=== PATIENT | female | born 1985 | race Caucasian/White ===

== ENCOUNTER 2018-10-05 12:21 | Emergency (ER) | payer BC, MEDICAID ==
[2018-10-05] MEDS ORDERED: HYDROCODONE/ACETAMINOPHEN 5-325 MG TABLET PO ONE (12:44)
[2018-10-05] MEDS ORDERED: PREDNISONE 20 MG TABLET PO ONE (12:44)
[2018-10-05] MEDS ORDERED: ONDANSETRON 4 MG TAB.RAPDIS PO ONE (12:44)
[2018-10-05] MEDS ORDERED: METHOCARBAMOL 750 MG TABLET PO ONE (12:45)
[2018-10-05 12:46] VITALS: BP 139/92
--- NOTE | 2018-10-05 12:50 | ER Document Report ---
ED General - General Chief Complaint: Neck and Upper Back Pain Stated Complaint: NECK AND BACK PAIN Time Seen by Provider: 10/05/18 12:35 Notes: Patient is a 32-year-old female that presents to the emergency department for chief complaint of neck pain and paresthesias. Patient states she has been having neck pain for at least 3-4 days, but has been ongoing longer than that but seemingly worse over this short a period of time, she has been having paresthesias in her hands, she is due to see an orthopedic surgeon for evaluation for possible surgery on her neck in 4 days. She states she has some numbness in her tongue at times, but also in her hands. She denies difficulty swallowing, or any difficulty breathing or shortness of breath. She describes the pain mainly at the lower right aspect of the cervical spine, and currently rates the pain as a 8 out of 10, constant aching in nature, worse with range of motion of the neck. She denies any other complaints at this time, denies any fevers, chills, night sweats, chest pain, nausea or vomiting. Past Medical History: Depression Past Surgical History: Gastric sleeve Social History: Denies tobacco, alcohol or drug use. Family History: Reviewed and noncontributory for presenting illness Allergies: Reviewed, see documented allergy list. REVIEW OF SYSTEMS: Other than noted above, the 12 point review of systems was reviewed with the patient and were negative, all pertinent findings are included in the HPI. PHYSICAL EXAMINATION: Vital signs reviewed, nursing noted reviewed. GENERAL: Well-appearing, well-nourished and in no acute distress. HEAD: Atraumatic, normocephalic. EYES: Eyes appear normal, extraocular movements intact, sclera anicteric, conjunctiva are normal. ENT: nares patent, oropharynx clear without exudates. Moist mucous membranes. NECK: Decreased range of motion secondary to pain, there is a tender area along the right paraspinal musculature, around C5 and C6. Positive Spurling's maneuver on the right. supple without lymphadenopathy, no midline tenderness or step-offs or deformities LUNGS: Breath sounds clear to auscultation bilaterally and equal. No wheezes rales or rhonchi. HEART: Regular rate and rhythm without murmurs ABDOMEN: Soft, nontender, normoactive bowel sounds. No rebound, guarding, or rigidity. No masses appreciated. EXTREMITIES: Nontender, good range of motion, no pitting or edema. Sensation intact and equal distally in all extremities, administrative fellow strength is +5/5, abduction and abduction of the fingers is +5/5 strength. NEUROLOGICAL: No focal neurological deficits. Moves all extremities spontaneously Motor and sensory grossly intact on exam. Normal gait. PSYCH: Normal mood, normal affect. SKIN: Warm, Dry, normal turgor, no rashes or lesions noted on exposed skin TRAVEL OUTSIDE OF THE [place] IN LAST 30 DAYS: No - Related Data Allergies/Adverse Reactions: Penicillins Allergy (Verified 10/05/18 12:39) rash Past Medical History - Social History Smoking Status: Never Smoker Chew tobacco use (# tins/day): No Frequency of alcohol use: None Drug Abuse: None Family History: CVA, Hyperlipidemia, Hypertension, Malignancy Patient has suicidal ideation: No Patient has homicidal ideation: No Pulmonary Medical History: Reports: Hx Bronchitis Renal/ Medical History: Denies: Hx Peritoneal Dialysis Musculoskeletal Medical History: Reports Hx Arthritis, Reports Hx Musculoskeletal Trauma Psychiatric Medical History: Reports: Hx Anxiety, Hx Depression - dep and anxiety Traumatic Medical History: Reports: Hx Fractures Past Surgical History: Reports: Hx Abdominal Surgery - gastric sleeve, Hx Orthopedic Surgery - right ankle x2 - Immunizations Immunizations up to date: Yes Hx Diphtheria, Pertussis, Tetanus Vaccination: Yes Physical Exam - Vital signs Vitals: Temp Pulse Resp BP Pulse Ox 97.3 F 69 18 139/92 H 99 10/05/18 12:45 10/05/18 12:45 10/05/18 12:45 10/05/18 12:45 10/05/18 12:45 Course - Re-evaluation Re-evalutation: Patient seen and examined vital signs reviewed. Patient was evaluated and treated as appropriate for the patient's presenting symptoms and complaint, with consideration of any critical or life threatening conditions that may be associated with their obtained history and exam as noted above. Patient was treated with Robaxin, [place], Zofran The patient was re-evaluated and was improved Evaluation was most consistent with neck pain, likely cervical radiculopathy, will prescribe the patient prednisone 60 mg for 5 days, Robaxin, [place], Zofran and Mobic if needed for pain. Patient advised to keep her appointment with orthopedic surgery, for possible evaluation for surgical intervention. Advised to return if she developed weakness in one arm or leg, or any difficulty walking or pain that was out of control. Plan of care was discussed with the patient at this point, after careful consideration I feel that that patient can be discharged from the emergency department, the patient was educated treatments and reasons to return to the emergency department based on their presumed diagnosis as noted above, they were advised to followup with a primary care physician in 2-3 days. Patient was agreeable to plan of care. *Note is created using voice recognition software and may contain spelling, syntax or grammatical errors. - Vital Signs Vital signs: Temp Pulse Resp BP Pulse Ox 97.3 F 69 18 139/92 H 99 10/05/18 12:45 10/05/18 12:45 10/05/18 12:45 10/05/18 12:45 10/05/18 12:45 Discharge - Discharge Clinical Impression: Neck pain, Paresthesia Condition: Stable Disposition: HOME, SELF-CARE Instructions: Neck Injury (Cervical Strain) ([facility]), Numbness or Paresthesia ([facility] ) Additional Instructions: Please take medications as prescribed, and please follow-up with Dr. Duarte with orthopedic surgery, for further evaluation and management. Prescriptions: Methocarbamol [Robaxin 750 mg Tablet] 750 mg PO Q8HP PRN #30 tablet PRN Reason: neck spasm Hydrocodone/Acetaminophen [[place] 5-325 mg Tablet] 1 tab PO Q8H PRN #12 tablet PRN Reason: neck pain Meloxicam [Mobic] 15 mg PO DAILY #15 tablet Ondansetron [Zofran Odt 4 mg Tablet] 1 tab PO Q8H PRN #15 tab.rapdis PRN Reason: For Nausea/Vomiting Prednisone [Deltasone 20 mg Tablet] 3 tab PO DAILY 4 Days #12 tablet Referrals: EMORY ABBASI MD [ACTIVE STAFF] - Follow up in 3-5 days MADI DUARTE MD [ACTIVE STAFF] - Follow up in 3-5 days
== END 2018-10-05 12:54 | disposition home or self-care (01) ==
LOC: ER 12:21
DX: M54.2 Cervicalgia (principal); R20.2 Paresthesia of skin; R20.0 Anesthesia of skin; Z98.84 Bariatric surgery status; Z88.0 Allergy status to penicillin
CPT/HCPCS: 99283; S0119; J3490; J7512

== ENCOUNTER 2018-12-08 23:58 | Emergency (ER) | payer MEDICAID ==
[2018-12-09] MEDS ORDERED: KETOROLAC TROMETHAMINE INJ/PF 30 MG/1 ML SDV IV ONE (01:04)
[2018-12-09] MEDS ORDERED: ONDANSETRON HCL INJ/PF 4 MG/2 ML SDV IV ONE (01:04)
[2018-12-09] MEDS: MORPHINE SULFATE 10 MG/ML INJ IV PRN ×2 (01:15→02:10)
[2018-12-09 01:30] LABS: ALANINE AMINOTRANSFERASE 25 U/L (9-52); ALBUMIN 4.6 g/dL (3.5-5.0); ALKALINE PHOSPHATASE 76 U/L (38-126); ASPARTATE AMINO TRANSFERASE 23 U/L (14-36); BILIRUBIN,DIRECT 0.2 mg/dL (0.0-0.4); BILIRUBIN,TOTAL 0.5 mg/dL (0.2-1.3); BLOOD UREA NITROGEN 16 mg/dL (7-20); CALCIUM 9.1 mg/dL (8.4-10.2); CARBON DIOXIDE 25 mmol/L (22-30); GLUCOSE 92 mg/dL (75-110); POTASSIUM 4.7 mmol/L (3.6-5.0); SODIUM 141.3 mmol/L (137-145)
[2018-12-09 01:31] LABS: ABSOLUTE EOSINOPHILS # (AUTO) 0.1 10^3/uL (0.0-0.6); ABSOLUTE LYMPHOCYTES (AUTO) 4.6 10^3/uL (0.5-4.7); ABSOLUTE MONOCYTES (AUTO) 0.9 10^3/uL (0.1-1.4); ABSOLUTE NEUT (AUTO) 6.9 10^3/uL (1.7-8.2); BASOPHILS % (AUTO) 0.4 % (0-2); HEMATOCRIT 40.5 % (36.0-47.0); HEMOGLOBIN 13.8 g/dL (12.0-15.5); LYMPHOCYTES % (AUTO) 36.5 % (13-45); MEAN CORPUSCULAR HEMOGLOBIN 29.6 pg (27.0-33.4); MEAN CORPUSCULAR HGB CONC 34.2 g/dL (32.0-36.0); MEAN CORPUSCULAR VOLUME 87 fl (80-97); MONOCYTES % (AUTO) 7.4 % (3-13); PLATELET COUNT 323 10^3/uL (150-450); RED BLOOD COUNT 4.67 10^6/uL (3.72-5.28); RED CELL DISTRIBUTION WIDTH 12.9 % (11.5-14.0); SEGMENTED NEUTROPHILS % (AUTO) 54.7 % (42-78); TOTAL CELLS COUNTED % (AUTO) 100 %; WHITE BLOOD COUNT 12.7 10^3/uL (4.0-10.5)
[2018-12-09 01:32] LABS: ANION GAP 9 (5-19); CHLORIDE 107 mmol/L (98-107)
--- NOTE | 2018-12-09 02:05 | ER Document Report ---
ED General - General Chief Complaint: Abdominal Pain Stated Complaint: ABDOMINAL PAIN Time Seen by Provider: 12/09/18 00:46 Notes: Patient is a 33-year-old female without chronic medical problems, no prior abdominal surgical history, presents with acute onset of right adnexal abdominal pain that started during sexual intercourse. Patient states that immediately upon penetration she developed a severe, stabbing, constant pain to the area. States that the pain has been ongoing since that time. Notes associated nausea and vomiting. Nothing has improved or worsen the pain since it started. No history of similar symptoms in the past. Denies any vaginal bleeding or vaginal discharge. No dysuria. TRAVEL OUTSIDE OF THE [place] IN LAST 30 DAYS: No - Related Data Allergies/Adverse Reactions: Penicillins Allergy (Verified 10/05/18 12:39) rash Past Medical History - General Information source: Patient - Social History Smoking Status: Never Smoker Frequency of alcohol use: None Drug Abuse: None Lives with: Spouse/Significant other Family History: CVA, Hyperlipidemia, Hypertension, Malignancy Pulmonary Medical History: Reports: Hx Bronchitis Renal/ Medical History: Denies: Hx Peritoneal Dialysis Musculoskeletal Medical History: Reports Hx Arthritis, Reports Hx Musculoskeletal Trauma Psychiatric Medical History: Reports: Hx Anxiety, Hx Depression - dep and anxiety Traumatic Medical History: Reports: Hx Fractures Past Surgical History: Reports: Hx Abdominal Surgery - gastric sleeve, Hx Orthopedic Surgery - right ankle x2 - Immunizations Immunizations up to date: Yes Hx Diphtheria, Pertussis, Tetanus Vaccination: Yes Review of Systems - Review of Systems Notes: Constitutional: Negative for fever. HENT: Negative for sore throat. Eyes: Negative for visual changes. Cardiovascular: Negative for chest pain. Respiratory: Negative for shortness of breath. Gastrointestinal: Positive for abdominal pain and vomiting Genitourinary: Negative for dysuria. Musculoskeletal: Negative for back pain. Skin: Negative for rash. Neurological: Negative for headaches, weakness or numbness. 10 point ROS negative except as marked above and in HPI. Physical Exam - Vital signs Vitals: Temp Pulse Resp BP Pulse Ox 98.2 F 73 16 121/88 H 98 12/09/18 00:14 12/09/18 00:14 12/09/18 00:14 12/09/18 00:14 12/09/18 00:14 Interpretation: Normal Notes: PHYSICAL EXAMINATION: GENERAL: Well-appearing, well-nourished and in no acute distress. HEAD: Atraumatic, normocephalic. EYES: Pupils equal round and reactive to light, extraocular movements intact, sclera anicteric, conjunctiva are normal. ENT: nares patent, oropharynx clear without exudates. Moist mucous membranes. NECK: Normal range of motion, supple without lymphadenopathy LUNGS: Breath sounds clear to auscultation bilaterally and equal. No wheezes rales or rhonchi. HEART: Regular rate and rhythm without murmurs ABDOMEN: Soft, focal tenderness on palpation of the right adnexa no other localized areas of tenderness, normoactive bowel sounds. No guarding, no rebound. No masses appreciated. EXTREMITIES: Normal range of motion, no pitting or edema. No cyanosis. NEUROLOGICAL: No focal neurological deficits. Moves all extremities spontaneously and on command. PSYCH: Normal mood, normal affect. SKIN: Warm, Dry, normal turgor, no rashes or lesions noted. Course - Re-evaluation Re-evalutation: 12/09/18 02:06 Patient presents with acute onset of right adnexal pain during penetrative sexual intercourse. On exam she does have focal tenderness the right adnexa notable findings on exam. Primary concern would be for possible ovarian torsion versus ruptured ovarian cyst. Highly unlikely to be an acute appendicitis nor nephrolithiasis given history. Vitals unremarkable. Initial laboratories likewise unremarkable. Transvaginal ultrasound pending. 12/09/18 02:44 Transvaginal ultrasound demonstrates an internal cystic structure of the cervix. I suspect that when penile penetration occurred the penis abutted the cervix and triggered the patient's acute pain. She has had significant improvement of her discomfort at this time. Repeat abdominal exam much improved. Patient at this point actually relates that she has noticed that when she inserts large tampons that she often has similar pain tonight although not this degree of severity. I have advised pelvic rest until she follows up with POWER [facility]ER OPERATOR. Referral has been placed to Dr. Travis. At this time will discharge with return precautions and follow-up recommendations. Verbal discharge instructions given a the bedside and opportunity for questions given. Medication warnings reviewed. Patient is in agreement with this plan and has verbalized understanding of return precautions and the need for primary care follow-up in the next 24-72 hours. - Vital Signs Vital signs: Temp Pulse Resp BP Pulse Ox 98.2 F 73 16 121/88 H 98 12/09/18 00:14 12/09/18 00:14 12/09/18 00:14 12/09/18 00:14 12/09/18 00:14 - Laboratory Result Diagrams: 12/09/18 00:27 12/09/18 00:27 Laboratory results interpreted by me: 12/09/18 00:27 WBC 12.7 H - Diagnostic Test Radiology reviewed: Reports reviewed Discharge - Discharge Clinical Impression: Cyst of cervix, Right lower quadrant abdominal pain, Painful sexual intercourse Condition: Good Disposition: HOME, SELF-CARE Additional Instructions: We advised pelvic rest until you follow-up with POWER BENDER OPERATOR. As we discussed you do have a cyst on your cervix which was likely the trigger of pain during sexual intercourse tonight. Please return to the emergency department immediately if you develop recurrence or worsening of the pain you experienced earlier today, you develop fever greater than 100.4 F, you develop vomiting, or have any other symptoms that are worrisome to you. For your pain: Take ibuprofen 600 mg and acetaminophen 650 mg every 6 hours together as needed for pain. If this does not control your pain you may take 1 of the [place] tablets with which you have been sent home every 4 hours. P Referrals: FILEMON TRAVIS MD [ACTIVE STAFF] - Follow up as needed
--- NOTE | 2018-12-09 02:24 | RADIOLOGY REPORT (SQ) ---
CLINICAL HISTORY: right adnexal pain COMPARISON: None. TECHNIQUE: US TRANSVAGINAL on 12/09/2018 12:47 AM SALES AND SERVICE AGENT FINDINGS: Uterus measures 8.9 cm and is normal in echotexture. Endometrial stripe measures 5 mm. Cervix measures 3.2 cm and contains a complex cystic lesion measuring 1.5 x 1.8 x 1.4 cm without internal vascularity. Right ovary measures 2.1 x 1.7 x 1.3 cm and the left ovary measures 2.8 x 1.8 x 2.1 cm. There is patent flow bilaterally. IMPRESSION: Indeterminate cervical lesion. No evidence of ovarian torsion.
[2018-12-09 02:47] LABS: APPEARANCE,URINE SLIGHTLY-CLOUDY; BILIRUBIN,URINE NEGATIVE (NEGATIVE); COLOR,URINE YELLOW; GLUCOSE, URINE NEGATIVE (NEGATIVE); KETONES,URINE NEGATIVE (NEGATIVE); LEUKOCYTE ESTERASE,URINE NEGATIVE (NEGATIVE); NITRITE,URINE NEGATIVE (NEGATIVE); PROTEIN,URINE NEGATIVE (NEGATIVE); URINE SPECIFIC GRAVITY 1.027
[2018-12-09] MEDS ORDERED: HYDROCODONE/ACETAMINOPHEN 5-325 MG (6 TAB/ER DISP) PO PRN (02:58)
[2018-12-09] MEDS ORDERED: ONDANSETRON ODT 4 MG TAB (6 TAB/ER DISP) PO PRN (02:58)
[2018-12-09 03:08] VITALS: BP 111/67
== END 2018-12-09 03:21 | disposition home or self-care (01) ==
LOC: ER 23:58
DX: N88.8 Other specified noninflammatory disorders of cervix uteri (principal); N94.10 Unspecified dyspareunia; R10.813 Right lower quadrant abdominal tenderness; R10.9 Unspecified abdominal pain; R11.2 Nausea with vomiting, unspecified; Z88.0 Allergy status to penicillin
CPT/HCPCS: 99284; 96374; 96375; 36415; 85025; 81025; 80053; 81001; 76830; 93976; J1885; J2270; J2405

== ENCOUNTER 2019-07-17 08:55 | Day surgery (SDC) | payer MEDICAID ==
[2019-07-09 11:34] LABS: HEMATOCRIT 35.7 % (36.0-47.0); HEMOGLOBIN 11.9 g/dL (12.0-15.5); MEAN CORPUSCULAR HEMOGLOBIN 27.9 pg (27.0-33.4); MEAN CORPUSCULAR HGB CONC 33.3 g/dL (32.0-36.0); MEAN CORPUSCULAR VOLUME 84 fl (80-97); PLATELET COUNT 305 10^3/uL (150-450); RED BLOOD COUNT 4.27 10^6/uL (3.72-5.28); RED CELL DISTRIBUTION WIDTH 12.4 % (11.5-14.0); WHITE BLOOD COUNT 8.1 10^3/uL (4.0-10.5)
[2019-07-09 11:42] LABS: APPEARANCE,URINE SLIGHTLY-CLOUDY; BILIRUBIN,URINE NEGATIVE (NEGATIVE); COLOR,URINE YELLOW; GLUCOSE, URINE NEGATIVE (NEGATIVE); KETONES,URINE TRACE mg/dL (NEGATIVE); LEUKOCYTE ESTERASE,URINE NEGATIVE (NEGATIVE); NITRITE,URINE NEGATIVE (NEGATIVE); PROTEIN,URINE NEGATIVE (NEGATIVE); URINE SPECIFIC GRAVITY 1.021; UROBILINOGEN,URINE NEGATIVE mg/dL (<2.0)
[2019-07-09 12:09] LABS: ALBUMIN 4.3 g/dL (3.5-5.0); ALKALINE PHOSPHATASE 86 U/L (38-126); ANION GAP 8 (5-19); ASPARTATE AMINO TRANSFERASE 24 U/L (14-36); BILIRUBIN,DIRECT 0.3 mg/dL (0.0-0.4); BILIRUBIN,TOTAL 0.7 mg/dL (0.2-1.3); BLOOD UREA NITROGEN 8 mg/dL (7-20); CARBON DIOXIDE 26 mmol/L (22-30); CHLORIDE 104 mmol/L (98-107); GLUCOSE 87 mg/dL (75-110); TOTAL PROTEIN 7.7 g/dL (6.3-8.2)
[~2019-07-17 08:55] MED LIST: CLINDAMYCIN 900 MG/D5W RTU 900 MG/50 ML RTUPB IV ONE; CLINDAMYCIN 900 MG/D5W RTU 900 MG/50 ML RTUPB IV PRN; FENTANYL CITRATE INJ/PF 100 MCG/2 ML AMPUL ONE; GENTAMICIN SULFATE 120 MG in DEXTROSE 5%-WATER 100 ML IV PRN; HYDROMORPHONE HCL INJ/PF 2 MG/ML AMPULE ONE; LACTATED RINGERS 1000 ML IV PRN; LIDOCAINE 0.5% INJ-PF (5 MG/ML) 50 ML SDV SUBCUT PRN; MIDAZOLAM 2 MG/2 ML INJ ONE; PROPOFOL INJ 200 MG/20 ML VIAL IV ONE
[2019-07-17] MEDS ORDERED: MIDAZOLAM 2 MG/2 ML INJ ONE (09:40)
[2019-07-17] MEDS ORDERED: FENTANYL CITRATE INJ/PF 100 MCG/2 ML AMPUL ONE (09:43)
[2019-07-17] MEDS ORDERED: LIDOCAINE 1%/EPINEPHRINE INJ 20 ML VIAL ONE (10:23)
[2019-07-17] MEDS ORDERED: SCOPOLAMINE HYDROBROMIDE 1.5 MG PATCH.TD72 ONE (10:47)
[2019-07-17] MEDS ORDERED: ESTROGENS,CONJUGATED 0.625 MG/1 GM 30 GM TUBE PV ONE (11:00)
[2019-07-17] MEDS ORDERED: PROMETHAZINE HCL INJ 25 MG/1 ML VIAL IV PRN (11:16)
[2019-07-17] MEDS ORDERED: OXYCODONE-ACETAMINOPHEN 5-325 MG TABLET PO PRN ×3 (11:16→13:15)
[2019-07-17] MEDS ORDERED: MEPERIDINE HCL/PF INJ 25 MG/1 ML DISP.SYRIN IV PRN (11:16)
[2019-07-17] MEDS ORDERED: DIPHENHYDRAMINE HCL 50 MG/ML VIAL IV PRN (11:16)
[2019-07-17] MEDS ORDERED: ONDANSETRON HCL INJ/PF 4 MG/2 ML SDV IV PRN (11:16)
[2019-07-17] MEDS ORDERED: MORPHINE SULFATE 10 MG/ML INJ IV PRN ×2 (11:16→13:13)
[2019-07-17] MEDS ORDERED: FENTANYL CITRATE INJ/PF 100 MCG/2 ML AMPUL IV PRN ×3 (11:16)
[2019-07-17] MEDS ORDERED: BUPIVACAINE HCL 0.25 % INJ/PF (2.5 MG/1 ML) 30 ML VIAL ONE (12:11)
[2019-07-17] MEDS ORDERED: ACETAMINOPHEN 1,000 MG/100 ML RTUPB IV ONE ×2 (12:57→21:00)
[2019-07-17] MEDS ORDERED: IBUPROFEN 800 MG TABLET PO PRN (13:15)
--- NOTE | 2019-07-17 14:10 | Operative Report ---
Operative Report DATE OF SURGERY: 07/17/19 PREOPERATIVE DIAGNOSIS: Abnormal uterine bleeding, grade 3 urterovaginal prolap se, pelvic pain POSTOPERATIVE DIAGNOSIS: same OPERATION: [facility] with uterosacral suspension, anterior and posterior repair SURGEON: FILEMON TRAVIS 1ST PLATE MAKER ZINC: FLAKITA TURPIN 2ND Church Official: FANNY FERRARI ANESTHESIA: GA TISSUE REMOVED OR ALTERED: Uterus and cervix COMPLICATIONS: none ESTIMATED BLOOD LOSS: 100 cc INTRAOPERATIVE FINDINGS: uterus approximately 12 wks in size, fallopian tubes not visible due to bowel. Grapde three prolapse and vaginal mucosa on posterior side PROCEDURE: Patient was taken to the operating room prepared and draped in normal sterile fashion a dorsal lithotomy position in [facility]. Placed in the posterior fourchette retractor was placed in the anterior fourchette. Wax was grasped with a triple tooth tenaculum and injected circumferentially with 10 cc of lidocaine with epi. The cervix was then scored with a 10 blade ventral fashion so was dissected away from the uterus using Alvarado's. The anterior cul-de-sac was entered sharply with the Mayos and the weighted speculum was replaced with a long weighted speculum. Anterior cul-de-sac was then also entered sharply. The uterosacral ligaments were then clamped and cut with Samson clamps and Alvarado scissors these pedicles were tied off with 2-0 Vicryl tagged with hemostats. The rest of the uterine artery was then ligated on both sides using the LigaSure. The uterus was flipped once we reached the fundus of the mucosa was ligated using the LigaSure specimen was completely freed. We swept the bowel back with sponge sticks were the fallopian tubes were not visible through the epiploica. Her attempts to remove the fallopian tubes were abandoned in regards to patient safety. The angle of the vaginal cuff was then with pickups and the vaginal cuff was closed with an 0 Vicryl runner. From the posterior repair. Being the posterior vaginal mucosa with Allises clamps in a vertical fashion this mucosa was then and injected with approximately 10-1/2 cc of lidocaine with epi the mucosa was then scored with a 15 blade in the midline the mucosa was dissected away from the rectum vaginal using Metzenbaums and blun t dissection and sharp dissection as needed. Once the sacral bone was palpated and the uterosacral ligament was located via palpation the anchor anchor sure device was deployed in the anchor sure was fixed to the apex of the posterior repair tear repair was then completed with 4 bridge sutures of 2-0 Vicryl placed the rectovaginal peritoneum cyst vaginal mucosa was then trimmed. The defect was then closed with an 0 Vicryl runner. Down the anchor sure stitch posteriorly. Anterior repair was then performed in a similar fashion with using 2 Allises grasping the anterior vaginal mucosa in the midline getting this with approximately 10 cc of lidocaine with epi dissecting the vesicle vaginal mucosa away from the vesicovaginal peritoneum to suit bridge sutures of 2-0 chromic were placed across the defect mucosa was trimmed and the defect was then closed using 0 Vicryl runner. The vagina was then inspected [place]ck packing with Premarin cream on the end was placed within the vagina. Was taken to recovery in stable condition sponge lap and needle counts were correct x2
[2019-07-17] MEDS ORDERED: DEXAMETHASONE SOD PHOSPHATE INJ 4 MG/1 ML VIAL ONE (14:26)
[2019-07-17] MEDS ORDERED: ROCURONIUM BROMIDE INJ 50 MG/5 ML VIAL IV ONE (14:26)
[2019-07-17] MEDS ORDERED: SUCCINYLCHOLINE CHLORIDE INJ 200 MG/10 ML VIAL ONE (14:26)
[2019-07-17] MEDS ORDERED: KETOROLAC TROMETHAMINE 60 MG/2 ML SDV ONE (14:26)
[2019-07-17] MEDS ORDERED: ONDANSETRON HCL INJ/PF 4 MG/2 ML SDV ONE (14:26)
[2019-07-17] MEDS ORDERED: ONDANSETRON 4 MG TAB.RAPDIS PO ONE (16:30)
[2019-07-17] MEDS ORDERED: FAMOTIDINE 20 MG TABLET PO ONE (16:30)
[2019-07-17] MEDS: KETOROLAC TROMETHAMINE INJ/PF 30 MG/1 ML SDV IV SCH (20:39)
[2019-07-18] MEDS: KETOROLAC TROMETHAMINE INJ/PF 30 MG/1 ML SDV IV SCH (03:52)
--- NOTE | 2019-07-18 07:19 | PDOC DISCHARGE SUMMARY ---
General - Admit/Disc Date/PCP Discharge Date: 07/18/19 - Discharge Diagnosis (1) Uterovaginal prolapse, complete Is this a current diagnosis for this admission?: Yes (2) Pelvic pain Is this a current diagnosis for this admission?: Yes (3) Abnormal uterine bleeding Is this a current diagnosis for this admission?: Yes - Additional Information Resuscitation Status: Full Code Discharge Diet: As Tolerated Discharge Activity: Balance Activity w/Rest, Energy Conservation, No Lifting Over 10 Pounds, No Lifting/Push/Pulling, Pelvic Rest, No tub bath, Walk Frequently Prescriptions: Oxycodone HCl/Acetaminophen [Percocet 5-325 mg Tablet] 1 tab PO Q6HP PRN #30 tablet PRN Reason: Ibuprofen [Motrin 800 mg Tablet] 800 mg PO Q8HP PRN #60 tablet PRN Reason: Home Medications: Ibuprofen [Motrin 800 mg Tablet] 800 mg PO Q8HP PRN #60 tablet 07/18/19 Oxycodone HCl/Acetaminophen [Percocet 5-325 mg Tablet] 1 tab PO Q6HP PRN #30 tablet 07/18/19 History of Present Illness History of Present Illness: ERASTO THORPE is a 33 year old female Physical Exam - Physical Exam Vital Signs: Temp Pulse Resp BP Pulse Ox 97.4 F 55 L 16 106/66 98 07/18/19 03:38 07/18/19 03:38 07/18/19 03:38 07/18/19 04:04 07/18/19 03:38 Intake & Output 07/17/19 07/18/19 07/19/19 06:59 06:59 06:59 Intake Total 2150 Output Total 2500 Balance -350 Weight 113.3 kg General appearance: PRESENT: no acute distress, cooperative GI/Abdominal exam: PRESENT: soft Result Laboratory Results: 07/09/19 10:36 07/09/19 10:36 Plan Discharge Plan: discharge home with scheduled follow up with Dr. Mcginnis Time Spent: Less than 30 Minutes Acute Heart Failure - Is this a Heart Failure Patient?: No
[2019-07-18 08:03] VITALS: BP 141/87
== END 2019-07-18 08:09 | disposition home or self-care (01) ==
LOC: OROUT 08:55 → 2N 13:20 → OROUT 07-18 08:09
PROVIDERS: ATTEND Obstetrics & Gynecology
DX: N81.3 Complete uterovaginal prolapse (principal); N93.9 Abnormal uterine and vaginal bleeding, unspecified; N84.0 Polyp of corpus uteri; R10.2 Pelvic and perineal pain; N88.8 Other specified noninflammatory disorders of cervix uteri; Z32.02 Encounter for pregnancy test, result negative; N94.10 Unspecified dyspareunia; Z01.818 Encounter for other preprocedural examination
CPT/HCPCS: 58260; 57260; 58400; 86900; 86901; 36415 ×2; 86850; 85027; 81025; 80053; 81001; 88307 ×2; 00944; J2250; J3490 ×6; J1100; J1885 ×3; S0119; J3010; J1580; J1170; J0330; J2405; J7060; J7120; J2704; J0131; 944

== ENCOUNTER → 2019-08-13 | Outpatient (CLI) | payer MEDICAID ==
--- NOTE | 2019-08-13 15:31 | RADIOLOGY REPORT (SQ) ---
EXAM DESCRIPTION: HAND LEFT 3 VIEWS COMPLETED DATE/TIME: 08/13/2019 3:09 pm REASON FOR STUDY: INJURY OF LEFT HAND S69.92XA UNSP INJURY OF LEFT WRIST, HAND AND FINGER(S), INIT COMPARISON: None. EXAM PARAMETERS: NUMBER OF VIEWS: Three views. TECHNIQUE: AP, lateral and oblique radiographic images acquired of the left hand. LIMITATIONS: None. FINDINGS: MINERALIZATION: Normal. BONES: No acute fracture or dislocation. No worrisome bone lesions. Sesamoid noted at the distal 3r d metacarpal JOINTS: No effusions. SOFT TISSUES: No soft tissue swelling. No foreign body. OTHER: No other significant finding. IMPRESSION: No acute bony abnormality. No radiopaque foreign body. TECHNICAL DOCUMENTATION: JOB ID: [id number] [employer]- All Rights Reserved Reading location - IP/workstation name: [email or web address]
== END ==
LOC: OD 14:56
PROVIDERS: ATTEND Nurse Practitioner Acute Care
DX: S69.92XA Unspecified injury of left wrist, hand and finger(s), initial encounter (principal); X58.XXXA Exposure to other specified factors, initial encounter

== ENCOUNTER 2019-09-08 01:13 | Emergency (ER) | payer MEDICAID ==
[2019-09-08 01:18] VITALS: BP 156/80
[2019-09-08 01:47] LABS: ABSOLUTE BASOPHILS # (AUTO) 0.1 10^3/uL (0.0-0.2); ABSOLUTE EOSINOPHILS # (AUTO) 0.1 10^3/uL (0.0-0.6); ABSOLUTE LYMPHOCYTES (AUTO) 4.6 10^3/uL (0.5-4.7); ABSOLUTE MONOCYTES (AUTO) 0.8 10^3/uL (0.1-1.4); ABSOLUTE NEUT (AUTO) 6.5 10^3/uL (1.7-8.2); BASOPHILS % (AUTO) 0.6 % (0-2); EOSINOPHILS % (AUTO) 0.4 % (0-6); HEMATOCRIT 36.7 % (36.0-47.0); HEMOGLOBIN 11.9 g/dL (12.0-15.5); MEAN CORPUSCULAR HEMOGLOBIN 25.3 pg (27.0-33.4); MEAN CORPUSCULAR HGB CONC 32.4 g/dL (32.0-36.0); MEAN CORPUSCULAR VOLUME 78 fl (80-97); MONOCYTES % (AUTO) 6.8 % (3-13); PLATELET COUNT 362 10^3/uL (150-450); RED BLOOD COUNT 4.69 10^6/uL (3.72-5.28); RED CELL DISTRIBUTION WIDTH 12.8 % (11.5-14.0); SEGMENTED NEUTROPHILS % (AUTO) 54.2 % (42-78); TOTAL CELLS COUNTED % (AUTO) 100 %
[2019-09-08] MEDS ORDERED: MORPHINE SULFATE 10 MG/ML INJ IV ONE (01:54)
[2019-09-08] MEDS ORDERED: NORMAL SALINE 1000 ML 1,000 ML IV ONE (01:54)
[2019-09-08] MEDS ORDERED: ONDANSETRON HCL INJ/PF 4 MG/2 ML SDV IV ONE (01:54)
--- NOTE | 2019-09-08 01:56 | ER Document Report ---
ED General - General Chief Complaint: Abdominal Pain Stated Complaint: ABDOMINAL PAIN Time Seen by Provider: 09/08/19 01:49 Primary Care Provider: MGE GARCIA NP [NURSE PRACTITIONER] - Follow up as needed TRAVEL OUTSIDE OF THE [place] IN LAST 30 DAYS: No - HPI Notes: Patient is a 33-year-old female who presents emergency department for evaluation of epigastric pain. It was sudden onset about 2 hours ago. She was sitting in her chair, had been eating some soup. She is had nausea but no emesis. She had a normal bowel movement earlier today. She states she is felt hot and cold, but no sandeep fevers to her knowledge. Normal urination. No vaginal discharge. Nothing seems to make her pain better or worse. She states that does radiate through occasionally into her back. - Related Data Allergies/Adverse Reactions: Penicillins Allergy (Verified 07/17/19 09:24) rash Home Medications: None Past Medical History - General Information source: Patient - Social History Smoking Status: Never Smoker Chew tobacco use (# tins/day): No Frequency of alcohol use: None Family History: CVA, Hyperlipidemia, Hypertension, Malignancy Patient has suicidal ideation: No Patient has homicidal ideation: No - Past Medical History Cardiac Medical History: Denies: Hx Coronary Artery Disease, Hx Heart Attack, Hx Hypertension Pulmonary Medical History: Reports: Hx Bronchitis Denies: Hx Asthma, Hx COPD, Hx Pneumonia Neurological Medical History: Denies: Hx Cerebrovascular Accident, Hx Seizures Renal/ Medical History: Denies: Hx Peritoneal Dialysis Musculoskeletal Medical History: Reports Hx Arthritis - RIGHT ANKLE, Reports Hx Musculoskeletal Trauma Psychiatric Medical History: Reports: Hx Anxiety, Hx Depression - dep and anxiety Traumatic Medical History: Reports: Hx Fractures Past Surgical History: Reports: Hx Abdominal Surgery - gastric sleeve, Hx Ortho pedic Surgery - right ankle x2, Hx Tonsillectomy - Immunizations Immunizations up to date: Yes Hx Diphtheria, Pertussis, Tetanus Vaccination: Yes Review of Systems - Review of Systems Constitutional: No symptoms reported EENT: No symptoms reported Cardiovascular: No symptoms reported Respiratory: No symptoms reported Gastrointestinal: See HPI Genitourinary: No symptoms reported Musculoskeletal: No symptoms reported Skin: No symptoms reported Neurological/Psychological: No symptoms reported Physical Exam - Vital signs Vitals: Temp Pulse Resp BP Pulse Ox 97.5 F 82 20 156/80 H 100 09/08/19 01:17 09/08/19 01:17 09/08/19 01:17 09/08/19 01:17 09/08/19 01:17 - Notes Notes: This is an obese 33-year-old female, appears her stated age. She is lying on her left side, appears comfortable, cooperative with examiner. Vital signs reviewed, please refer to chart. Head is normocephalic, atraumatic. Pupils equal round, reactive to light. Neck is supple without meningismus. Heart is regular rate and rhythm. Lungs are clear to auscultation bilaterally. Abdomen is soft, moderately tender in the epigastrium and right upper quadrant without rebound or guarding, normoactive bowel sounds throughout. Extremities without cyanosis, clubbing. Posterior calves are nontender. Peripheral pulses are equal. Skin is warm and dry. Patient is awake, alert, neurological exam is nonfocal. Course - Re-evaluation Re-evalutation: 09/08/19 02:57 Patient presented the emergency department for evaluation of nausea and abdominal pain. Her symptoms had only been present for approximately 2 hours prior to arrival. She had some tenderness on exam but her abdominal exam is non surgical. I ordered an IV to be placed with medications to be given. The patient refused. I was awaiting laboratory investigations to determine whether or not any further imaging was necessary. Upon reviewing her labs, which were entirely unremarkable, decision was made to place orders for an abdominal series. At this point, I was notified by the charge nurse that the patient left the department. She did not notify anyone that she was leaving. She did not have an IV in place. I did not have any opportunity to complete my work-up on this patient. No serial abdominal exams were performed, and again I was not notified until after she had eloped from the department. - Vital Signs Vital signs: Temp Pulse Resp BP Pulse Ox 97.5 F 82 20 156/80 H 100 09/08/19 01:17 09/08/19 01:17 09/08/19 01:17 09/08/19 01:17 09/08/19 01:17 - Laboratory Result Diagrams: 09/08/19 01:23 09/08/19 01:23 Laboratory results interpreted by me: 09/08/19 01:23 WBC 12.0 H Hgb 11.9 L MCV 78 L MCH 25.3 L Discharge - Discharge Clinical Impression: Epigastric abdominal pain Disposition: ELOPED Referrals: MEG GARCIA NP [NURSE PRACTITIONER] - Follow up as needed
[2019-09-08 02:18] LABS: ALBUMIN 4.4 g/dL (3.5-5.0); ALKALINE PHOSPHATASE 105 U/L (38-126); ANION GAP 9 (5-19); ASPARTATE AMINO TRANSFERASE 19 U/L (14-36); BILIRUBIN,DIRECT 0.1 mg/dL (0.0-0.4); BILIRUBIN,TOTAL 0.4 mg/dL (0.2-1.3); BLOOD UREA NITROGEN 10 mg/dL (7-20); CALCIUM 9.4 mg/dL (8.4-10.2); CARBON DIOXIDE 25 mmol/L (22-30); CHLORIDE 105 mmol/L (98-107); GLUCOSE 91 mg/dL (75-110); TOTAL PROTEIN 8.2 g/dL (6.3-8.2)
[2019-09-08 02:50] LABS: APPEARANCE,URINE CLEAR; BILIRUBIN,URINE NEGATIVE (NEGATIVE); COLOR,URINE YELLOW; GLUCOSE, URINE NEGATIVE (NEGATIVE); KETONES,URINE NEGATIVE (NEGATIVE); LEUKOCYTE ESTERASE,URINE NEGATIVE (NEGATIVE); NITRITE,URINE NEGATIVE (NEGATIVE); PROTEIN,URINE NEGATIVE (NEGATIVE); URINE SPECIFIC GRAVITY 1.014; UROBILINOGEN,URINE NEGATIVE mg/dL (<2.0)
== END 2019-09-08 03:00 | disposition left against medical advice (07) ==
LOC: ER 01:13
DX: R10.13 Epigastric pain (principal); R10.816 Epigastric abdominal tenderness; R10.811 Right upper quadrant abdominal tenderness; R11.0 Nausea; E66.9 Obesity, unspecified; Z98.84 Bariatric surgery status; Z88.0 Allergy status to penicillin; Z53.20 Procedure and treatment not carried out because of patient's decision for unspecified reasons
CPT/HCPCS: 36415; 80053; 81001; 83690; 85025; 99281

== ENCOUNTER 2020-10-04 08:17 | Emergency (ER) | payer MEDICAID ==
[2020-10-04] MEDS ORDERED: NORMAL SALINE 1000 ML 1,000 ML IV ONE (09:48)
--- NOTE | 2020-10-04 09:53 | ER Document Report ---
ED General - General Chief Complaint: Fever Stated Complaint: FEVER/POST SURGICAL PAIN Time Seen by Provider: 10/04/20 09:15 Primary Care Provider: ELIA RAO MD [Primary Care Provider] - Follow up as needed TRAVEL OUTSIDE OF THE [place] IN LAST 30 DAYS: No - HPI Notes: Patient is a 34-year-old female presents emergency department for evaluation of fever. Back in August the patient had breast augmentation performed, "[facility]." She had no complications and returned for an abdominoplasty to be performed in the same location. She had [address] [place] [address] She was sent home on antibiotics. She really cannot remember what they were, she believes it may have been Bactrim. She states she took them for a week and started having yeast infection symptoms. She stopped the antibiotics, took treatment for yeast infection. Yeast infection improved, but then she resumed the antibiotics and to the yeast infection symptoms returned. As a result she stopped taking the antibiotics. She is unsure as to how many she took. She developed fever of 102 yesterday. She said no nausea or vomiting. She is eating and drinking normally. She had a mild increase in pain over her incision . She states that she really has not noticed a change in the drainage in her DREW drain on the right. She had already had her left-sided DREW drain pulled by her primary care provider. She has had no ear pain, sore throat, rhinorrhea, nasal congestion. She denies any chest pain or shortness of breath. She has had no coughing. No nausea or vomiting. Normal bowel movements. Since the infection was treated she has had no vaginal discharge. She denies any dysuria, hematuria, urinary frequency. - Related Data Allergies/Adverse Reactions: Penicillins Allergy (Verified 10/04/20 09:34) rash Past Medical History - General Information source: Patient - Social History Smoking Status: Never Smoker Family History: CVA, Hyperlipidemia, Hypertension, Malignancy - Past Medical History Cardiac Medical History: Denies: Hx Coronary Artery Disease, Hx Heart Attack, Hx Hypertension Pulmonary Medical History: Reports: Hx Bronchitis Denies: Hx Asthma, Hx COPD, Hx Pneumonia Neurological Medical History: Denies: Hx Cerebrovascular Accident, Hx Seizures Renal/ Medical History: Denies: Hx Peritoneal Dialysis Musculoskeletal Medical History: Reports Hx Arthritis - RIGHT ANKLE, Reports Hx Musculoskeletal Trauma Psychiatric Medical History: Reports: Hx Anxiety, Hx Depression - dep and anxiety Traumatic Medical History: Reports: Hx Fractures Past Surgical History: Reports: Hx Abdominal Surgery - gastric sleeve, abdominoplasty, Hx Breast Surgery, Hx Orthopedic Surgery - right ankle x2, Hx Tonsillectomy - Immunizations Immunizations up to date: Yes Hx Diphtheria, Pertussis, Tetanus Vaccination: Yes Review of Systems - Review of Systems Constitutional: See HPI EENT: No symptoms reported Cardiovascular: No symptoms reported Respiratory: No symptoms reported Gastrointestinal: See HPI Genitourinary: No symptoms reported Musculoskeletal: No symptoms reported Skin: See HPI Neurological/Psychological: No symptoms reported -: Yes All other systems reviewed and negative Physical Exam - Vital signs Vitals: Pulse Ox 97 10/04/20 09:00 - Notes Notes: Vital signs reviewed, please refer to chart. Head is normocephalic, atraumatic. Pupils equal round, reactive to light. Neck is supple without meningismus. Heart is regular rate and rhythm. Lungs are clear to auscultation bilaterally. Abdomen is soft, nontender, normoactive bowel sounds throughout. She has a well approximated surgical scar with DREW drain on the right lower abdomen, the goes along the lower aspect of the abdomen consistent with recent panniculectomy. Serosanguineous appearing drainage noted in the DREW drain on the right. The wound is well approximated with some reactive appearing erythema, but no significant induration or other signs of infection noted. Extremities without cyanosis, clubbing. Posterior calves are nontender. Peripheral pulses are equal. Skin is warm and dry. Patient is awake, alert, neurological exam is nonfocal. Course - Re-evaluation Re-evalutation: 10/04/20 12:54 Patient presents emergency department for evaluation of fever. She had a fever yesterday. She is afebrile today. Her DREW drain on the right does not have any purulent appearing fluid, but this was sent for culture. Laboratory investigations ordered. Her white count is elevated. She has absolutely no other signs of systemic infection. Her abdomen is actually quite soft. I will go ahead and start her on doxycycline, on the assumption that this could possibly be a wound infection. She does not have a personal history of MRSA but there is some in the family. I will have her follow-up with her primary care provider tomorrow. I have explained to the patient that she does not have any overt signs of wound infection at this time, but this was not an intra-abdominal surgery, and given her white count I am inclined to treat. She is to return to the emergency department worsening or new concerning symptoms of any sort. - Vital Signs Vital signs: Temp Pulse Resp BP Pulse Ox 98.6 F 21 H 108/64 100 10/04/20 11:24 10/04/20 12:01 10/04/20 12:00 10/04/20 12:01 - Laboratory Result Diagrams: 10/04/20 09:15 10/04/20 09:15 Laboratory results interpreted by me: 10/04/20 10/04/20 09:15 09:15 WBC 16.6 H Hgb 9.0 L Hct 28.1 L MCV 75 L MCH 23.9 L RDW 14.7 H Lymph % (Auto) 10.2 L Absolute Neuts (auto) 13.3 H Seg Neutrophils % 80.2 H Sodium 135.6 L Albumin 3.4 L - EKG Interpretation by Me Additional EKG results interpreted by me: 10/04/20 13:04 Sinus mechanism with a rate of 90 bpm. Normal axis and intervals. No acute ST changes concerning for ischemia or infarction. Discharge - Discharge Clinical Impression: Fever Condition: Stable Disposition: HOME, SELF-CARE Instructions: Fever (OM) Additional Instructions: You are being treated for a possible postoperative infection with doxycycline. The fluid from your drain has been cultured, you will be contacted if you need to change antibiotics. Please follow-up with your primary care provider tomorrow. Take the antibiotic exactly as prescribed. If you develop fever greater than 24 hours from now, vomiting, increased pain, or any other new or concerning symptoms, please return immediately to the emergency department for evaluation. Prescriptions: Doxycycline Hyclate 100 mg PO BID #14 tablet.dr Referrals: ELIA RAO MD [Primary Care Provider] - Follow up as needed
--- NOTE | 2020-10-04 10:07 | RADIOLOGY REPORT (SQ) ---
EXAM DESCRIPTION: CHEST SINGLE VIEW IMAGES COMPLETED DATE/TIME: 10/04/2020 9:58 am REASON FOR STUDY: fever COMPARISON: 04/22/2016 EXAM PARAMETERS: NUMBER OF VIEWS: One view. TECHNIQUE: Single frontal radiographic view of the chest acquired. RADIATION DOSE: NA LIMITATIONS: None. FINDINGS: LUNGS AND PLEURA: No opacities, masses or pneumothorax. No pleural effusion. MEDIASTINUM AND HILAR STRUCTURES: No masses. Contour normal. HEART AND VASCULAR STRUCTURES: Heart normal in size. Normal vasculature. BONES: No acute findings. HARDWARE: None in the chest. OTHER: No other significant finding. IMPRESSION: NO ACUTE RADIOGRAPHIC FINDING IN THE CHEST. TECHNICAL DOCUMENTATION: JOB ID: [id number] 2010 [employer]- All Rights Reserved Reading location - IP/workstation name: [email or web address]
[2020-10-04 10:08] LABS: ABSOLUTE BASOPHILS # (AUTO) 0.1 10^3/uL (0.0-0.2); ABSOLUTE EOSINOPHILS # (AUTO) 0.1 10^3/uL (0.0-0.6); ABSOLUTE LYMPHOCYTES (AUTO) 1.7 10^3/uL (0.5-4.7); ABSOLUTE MONOCYTES (AUTO) 1.4 10^3/uL (0.1-1.4); ABSOLUTE NEUT (AUTO) 13.3 10^3/uL (1.7-8.2); BASOPHILS % (AUTO) 0.4 % (0-2); EOSINOPHILS % (AUTO) 0.5 % (0-6); HEMATOCRIT 28.1 % (36.0-47.0); LYMPHOCYTES % (AUTO) 10.2 % (13-45); MEAN CORPUSCULAR HEMOGLOBIN 23.9 pg (27.0-33.4); MEAN CORPUSCULAR VOLUME 75 fl (80-97); MONOCYTES % (AUTO) 8.7 % (3-13); PLATELET COUNT 370 10^3/uL (150-450); RED BLOOD COUNT 3.76 10^6/uL (3.72-5.28); RED CELL DISTRIBUTION WIDTH 14.7 % (11.5-14.0); SEGMENTED NEUTROPHILS % (AUTO) 80.2 % (42-78); TOTAL CELLS COUNTED % (AUTO) 100 %; WHITE BLOOD COUNT 16.6 10^3/uL (4.0-10.5)
[2020-10-04 10:16] LABS: ALBUMIN 3.4 g/dL (3.5-5.0); ALKALINE PHOSPHATASE 82 U/L (38-126); ANION GAP 6 (5-19); ASPARTATE AMINO TRANSFERASE 16 U/L (14-36); BILIRUBIN,DIRECT 0.1 mg/dL (0.0-0.4); BILIRUBIN,TOTAL 0.7 mg/dL (0.2-1.3); BLOOD UREA NITROGEN 7 mg/dL (7-20); CALCIUM 8.4 mg/dL (8.4-10.2); CARBON DIOXIDE 23 mmol/L (22-30); CHLORIDE 107 mmol/L (98-107); GLUCOSE 100 mg/dL (75-110); POTASSIUM 4.1 mmol/L (3.6-5.0); TOTAL PROTEIN 6.6 g/dL (6.3-8.2)
[2020-10-04 10:32] LABS: APPEARANCE,URINE SLIGHTLY-CLOUDY; BILIRUBIN,URINE NEGATIVE (NEGATIVE); COLOR,URINE YELLOW; GLUCOSE, URINE NEGATIVE (NEGATIVE); KETONES,URINE NEGATIVE (NEGATIVE); PROTEIN,URINE NEGATIVE (NEGATIVE); URINE SPECIFIC GRAVITY 1.017; UROBILINOGEN,URINE NEGATIVE mg/dL (<2.0)
[2020-10-04] MEDS ORDERED: DOXYCYCLINE HYCLATE 100 MG TABLET PO ONE (13:03)
[2020-10-04 13:12] VITALS: BP 126/77
--- NOTE | 2020-10-04 14:07 | EKG REPORT ---
SEVERITY:- NORMAL ECG - SINUS RHYTHM : Confirmed by: Eusebio Mckeon MD 04-Oct-2020 14:06:24
== END 2020-10-04 13:14 | disposition home or self-care (01) ==
LOC: ER 08:17
DX: R50.9 Fever, unspecified (principal); G89.18 Other acute postprocedural pain; Z98.890 Other specified postprocedural states; Z88.0 Allergy status to penicillin
CPT/HCPCS: 93005; 99285; 96360; 36415; 87040; 87205; 87070; 83605; 85025; 87075; 87077; 80053; 81001; 71045; 93010; J7030; 87186

== ENCOUNTER 2020-10-24 18:22 | Emergency (ER) | payer MEDICAID ==
[2020-10-24] MEDS ORDERED: ACETAMINOPHEN 325 MG TABLET PO ONE (18:44)
--- NOTE | 2020-10-24 18:47 | ER Document Report ---
ED Medical Screen (RME) - General Stated Complaint: CHILLS, HEADACHE Time Seen by Provider: 10/24/20 18:34 Primary Care Provider: ELIA RAO MD [Primary Care Provider] - Follow up as needed Notes: Patient presents complaining of headache fever and chills that started today. Patient states that she had an abdominal plasty surgery performed on September 16 of this year. Patient states that she developed an infection that did test p ositive for MRSA. Patient reports just finishing her antibiotics 3 days ago. Patient complains of pain and firmness to her umbilical incision. Patient denies any cough or cold symptoms. No concern for Covid. Patient denies any nausea vomiting or diarrhea. I have greeted and performed a rapid initial assessment of this patient. A comprehensive ED assessment and evaluation of the patient, analysis of test results and completion of the medical decision making process will be conducted by additional ED providers. TRAVEL OUTSIDE OF THE [place] IN LAST 30 DAYS: No - Related Data Allergies/Adverse Reactions: Penicillins Allergy (Verified 10/24/20 18:39) rash Past Medical History - Past Medical History Cardiac Medical History: Denies: Hx Coronary Artery Disease, Hx Heart Attack, Hx Hypertension Pulmonary Medical History: Reports: Hx Bronchitis Denies: Hx Asthma, Hx COPD, Hx Pneumonia Neurological Medical History: Denies: Hx Cerebrovascular Accident, Hx Seizures Renal/ Medical History: Denies: Hx Peritoneal Dialysis Musculoskeltal Medical History: Reports Hx Arthritis - RIGHT ANKLE, Reports Hx Musculoskeletal Trauma Psychiatric Medical History: Reports: Hx Anxiety, Hx Depression - dep and anxiety Traumatic Medical History: Reports: Hx Fractures Past Surgical History: Reports: Hx Abdominal Surgery - gastric sleeve, abdominoplasty, Hx Breast Surgery, Hx Orthopedic Surgery - right ankle x2, Hx Tonsillectomy - Immunizations Immunizations up to date: Yes Hx Diphtheria, Pertussis, Tetanus Vaccination: Yes Physical Exam - Abdominal Inspection: Other - Steri-Strips over incision, minimal drainage to dressing to right lower quadrant of abdomen Doctor's Discharge - Discharge Referrals: ELIA RAO MD [Primary Care Provider] - Follow up as needed
[2020-10-24 19:31] LABS: ABSOLUTE EOSINOPHILS # (AUTO) 0.2 10^3/uL (0.0-0.6); ABSOLUTE LYMPHOCYTES (AUTO) 2.3 10^3/uL (0.5-4.7); ABSOLUTE MONOCYTES (AUTO) 1.1 10^3/uL (0.1-1.4); ABSOLUTE NEUT (AUTO) 10.3 10^3/uL (1.7-8.2); BASOPHILS % (AUTO) 0.3 % (0-2); EOSINOPHILS % (AUTO) 1.4 % (0-6); HEMATOCRIT 30.9 % (36.0-47.0); HEMOGLOBIN 9.6 g/dL (12.0-15.5); LYMPHOCYTES % (AUTO) 16.8 % (13-45); MEAN CORPUSCULAR HGB CONC 31.2 g/dL (32.0-36.0); MEAN CORPUSCULAR VOLUME 74 fl (80-97); PLATELET COUNT 420 10^3/uL (150-450); RED BLOOD COUNT 4.19 10^6/uL (3.72-5.28); RED CELL DISTRIBUTION WIDTH 14.7 % (11.5-14.0); SEGMENTED NEUTROPHILS % (AUTO) 73.5 % (42-78); TOTAL CELLS COUNTED % (AUTO) 100 %
[2020-10-24 19:46] LABS: ALBUMIN 3.9 g/dL (3.5-5.0); ALKALINE PHOSPHATASE 114 U/L (38-126); ANION GAP 10 (5-19); ASPARTATE AMINO TRANSFERASE 18 U/L (14-36); BILIRUBIN,DIRECT 0.2 mg/dL (0.0-0.4); BILIRUBIN,TOTAL 0.6 mg/dL (0.2-1.3); BLOOD UREA NITROGEN 11 mg/dL (7-20); CALCIUM 9.3 mg/dL (8.4-10.2); CARBON DIOXIDE 30 mmol/L (22-30); CHLORIDE 101 mmol/L (98-107); GLUCOSE 100 mg/dL (75-110); POTASSIUM 4.2 mmol/L (3.6-5.0); TOTAL PROTEIN 7.5 g/dL (6.3-8.2)
[2020-10-24 21:29] LABS: APPEARANCE,URINE CLOUDY; BILIRUBIN,URINE NEGATIVE (NEGATIVE); COLOR,URINE YELLOW; GLUCOSE, URINE NEGATIVE (NEGATIVE); KETONES,URINE NEGATIVE (NEGATIVE); LEUKOCYTE ESTERASE,URINE NEGATIVE (NEGATIVE); NITRITE,URINE NEGATIVE (NEGATIVE); PROTEIN,URINE NEGATIVE (NEGATIVE); URINE SPECIFIC GRAVITY 1.023; UROBILINOGEN,URINE NEGATIVE mg/dL (<2.0)
[2020-10-24] MEDS ORDERED: VANCOMYCIN HCL INJ 1000 MG VIAL IV ONE (21:42)
--- NOTE | 2020-10-24 21:48 | ER Document Report ---
ED General - General Chief Complaint: Abdominal Pain Stated Complaint: CHILLS, HEADACHE Time Seen by Provider: 10/24/20 18:34 Primary Care Provider: ELIA RAO MD [Primary Care Provider] - Follow up as needed TRAVEL OUTSIDE OF THE [place] IN LAST 30 DAYS: No - HPI Context: Chief Complaint: [Fever and chills] [This is a 34-year-old female who presents complaining of fever and chills. Patient states that she had abdominoplasty done in [place] on September 16 of this year. Patient states that after having the surgery she developed infection that was positive for MRSA. Patient was reportedly seen here couple weeks ago by another ED provider and started on Bactrim. Patient states that she just finished her oral antibiotics about 3 days ago and today noticed that she had a temp of 99.7 and had some chills. Patient denies cough, shortness of breath, history of Covid infection, known exposure to persons positive for COVID-19 or persons under investigation for COVID-19. Patient states that she is just concerned that she may be redeveloping a MRSA infection which is why she presents today. Coincidentally patient is recovering from a poison mingo exposure and has calamine lotion on her legs for her poison mingo rash.] History obtained from [patient] Symptoms began:[1 day ago] Onset: [Gradual] Timing: [Gradual] Quality: [General malaise] Intensity: [2] Location: [Generalized] Radiation: [Denies] [The pain does not migrate to a new location.] Aggravating factors: [none] Relieving factors: [none] [Denies] SOB [Denies] nausea [Denies] vomiting [Denies] sweats [Denies] fever [Denies] cough [Denies] calf or leg swelling or pain - Related Data Allergies/Adverse Reactions: Penicillins Allergy (Verified 10/24/20 18:39) rash Past Medical History - General Information source: Patient - Social History Smoking Status: Former Smoker Family History: CVA, Hyperlipidemia, Hypertension, Malignancy - Past Medical History Cardiac Medical History: Denies: Hx Coronary Artery Disease, Hx Heart Attack, Hx Hypertension Pulmonary Medical History: Reports: Hx Bronchitis Denies: Hx Asthma, Hx COPD, Hx Pneumonia Neurological Medical History: Denies: Hx Cerebrovascular Accident, Hx Seizures Renal/ Medical History: Denies: Hx Peritoneal Dialysis Musculoskeletal Medical History: Reports Hx Arthritis - RIGHT ANKLE, Reports Hx Musculoskeletal Trauma Psychiatric Medical History: Reports: Hx Anxiety, Hx Depression - dep and anxiety Traumatic Medical History: Reports: Hx Fractures Past Surgical History: Reports: Hx Abdominal Surgery - gastric sleeve, abdominoplasty, Hx Breast Surgery, Hx Orthopedic Surgery - right ankle x2, Hx Tonsillectomy - Immunizations Immunizations up to date: Yes Hx Diphtheria, Pertussis, Tetanus Vaccination: Yes Review of Systems - Review of Systems Notes: Review of systems as below unless otherwise stated in HPI. CONSTITUTIONAL Positive fever, [positive] chills. EYES [No] eye pain. ENT [No] URI symptoms, [No] sore throat, [No] ear pain. CARDIOVASCULAR [No] chest pain, [No] palpitations, [No] edema. RESPIRATORY [No] Cough, [No] SOB, [No] wheezing. GASTROINTESTINAL [No] abdominal pain, [No] nausea, [No] Diarrhea, [No] Vomiting, [No] constipation, [No] melena, [No] rectal bleeding. GENITOURINARY [No] dysuria, [No] urinary frequency, [No] hematuria, [No] urinary urgency, [No] vaginal discharge, [No] vaginal bleeding. MUSCULOSKELETAL [No] Back pain. SKIN Positive rash NEUROLOGIC [No] Headache, [No] recent seizures, [No] paralysis,[No] parathesias. ENDOCRINE [No] polyuria. HEMO/LYMPATIC [No] easy brusing PSYCHIATRIC [No] depression. Physical Exam - Vital signs Vitals: Temp Pulse Resp BP Pulse Ox 98.8 F 96 16 129/80 H 100 10/24/20 18:49 10/24/20 18:49 10/24/20 18:49 10/24/20 18:49 10/24/20 18:49 - Notes Notes: Modified CONSTITUTIONAL [Vital signs reviewed, Patient appears comfortable, Alert and oriented X 3, Normal stature.] HEAD [Atraumatic, Normocephalic.] EYES [Eyes are normal to inspection, No discharge from eyes, Extraocular muscles intact, Sclera are normal, Conjunctiva are normal.] ENT [Ears normal to inspection, Nose examination normal, Posterior pharynx normal, Mouth normal to inspection.] NECK [Normal ROM, No jugular venous distention, No meningeal signs, no carotid bruit.] RESPIRATORY CHEST [Chest is nontender, Breath sounds normal, No respiratory distress.] CARDIOVASCULAR [RRR, No murmurs, Normal S1 S2, No rub, No gallop.] ABDOMEN [Abdomen is nontender, No pulsatile masses, No other masses, Bowel sounds normal, No distension, No peritoneal signs, No hernias. Patient has a small open surgical site around her umbilicus and there is a similar site present in her right lower quadrant where she accidentally removed a DREW drain. Both sites appear to be healing well inspection the site reveals no evidence of erythema, palpation of the site results no expression of purulent discharge from the surgical wound, no induration or fluctuance is appreciated at either site. Auscultation and palpation of the remainder of the abdomen is unremarkable.] BACK [There is no CVA Tenderness, There is no tenderness to palpation, Normal inspection.] UPPER EXTREMITY [Inspection normal, No cyanosis, No clubbing, No edema, 2+ radial pulses.] LOWER EXTREMITY [Inspection normal, No cyanosis, No clubbing, No edema, No calf tenderness, 2+ femoral pulses.] NEURO [No focal motor deficits, No focal sensory deficits, Speech normal.] SKIN [Skin is warm, Skin is dry, Skin is normal color.] LYMPHATIC [No adenopathy in neck.] PSYCHIATRIC [Normal affect. ] Course - Re-evaluation Re-evalutation: 10/24/20 21:50 Results of ED MSE discussed with patient and patient's significant other. Given the patient's history of MRSA infection, this MD has decided to get wound and blood cultures and give the patient a dose of vancomycin IV after reviewing the culture and sensitivity from her prior visit. Additionally I am going to put the patient back on Bactrim double strength twice daily for 14 days. All questions were answered prior to discharge. Emergency signs and symptoms, reasons to return to the emergency department discussed with patient and patient's significant other. - Vital Signs Vital signs: Temp Pulse Resp BP Pulse Ox 98.8 F 96 16 129/80 H 100 10/24/20 18:49 10/24/20 18:49 10/24/20 18:49 10/24/20 18:49 10/24/20 18:49 - Laboratory Results Result Diagrams: 10/24/20 19:12 10/24/20 19:12 Laboratory Results Interpreted: 10/24/20 19:12 WBC 14.0 H Hgb 9.6 L Hct 30.9 L MCV 74 L MCH 23.0 L MCHC 31.2 L RDW 14.7 H Absolute Neuts (auto) 10.3 H Critical Laboratory Results Reviewed: Yes - Patient's white count is decreased from her prior visit, and patient's H&H is slightly improved from her prior visit. Attending or Supervising Physician who Reviewed Labs: BLAISE SIMMONS IV - Radiology Results Critical Radiology Results Reviewed: No Critical Results Discharge - Discharge Clinical Impression: Encounter for postoperative wound check Condition: Stable Disposition: HOME, SELF-CARE Additional Instructions: Return to the Emergency Department without delay if any worse. HOME CARE INSTRUCTIONS & INFORMATION: Thank you for choosing us for your medical needs. We hope you're satisfied with the care you received. After you leave, you must properly care for your problem and, at the same time, observe its progress. Any condition can change. Some illnesses can change rapidly over hours or days. If your condition worsens, return to the Emergency Department or see your physician promptly. ABOUT YOUR X-RAYS AND EKG'S: If you had an EKG or X-rays taken, they have been read by the Emergency Physician. The X-rays and EKG's will also be read by a Radiologist or Structural Steel Trades Worker within 24 hours. If discrepancies are noted, you will be notified by telephone. Please be certain the ED has a correct telephone number & address where you can be reached. Also, realize that some fractures or abnormalities do not show up on initial X-rays. If your symptoms continue, see your physician. ABOUT YOUR LABORATORY TEST: If you had laboratory tests, the results have been reviewed by the Emergency Physician. Some test results (for example cultures) may not be available for several days. You will be contacted if any test result shows you need additional treatment. Please be certain the ED has a correct telephone number and address where you can be reached. ABOUT YOUR MEDICATIONS: You will receive instructions on how to take your medicine on the prescription label you receive. Additional information may be provided by the Pharmacy. If you have questions afterwards, call the ED for clarification or further instructions. Some prescribed medications may cause drowsiness. Do not perform tasks such as driving a car or operating machinery without consulting your Pharmacist. If you feel you need a refill of pain m edication, your condition will need re-evaluation. Please do not call for a refill of any medication. ABOUT YOUR SIGNATURE: Signature of this document acknowledges to followin. Understanding that you received emergency treatment and that you may be released before al medical problems are known or treated. Please be certain the ED has a correct phone number & address where you can be reached. 2. Acknowledgement that you will arrange for follow-up care as recommended. 3. Authorization for the Emergency Physician to provide information to your follow-up Physician in order to maximize your care. AT ANY TIME, IF YOUR SYMPTOMS CHANGE SIGNIFICANTLY OR WORSEN OR YOU DEVELOP NEW SYMPTOMS, RETURN TO THE EMERGENCY DEPARTMENT IMMEDIATELY FOR RE-EVALUATION. OUR GOAL IS TO PROVIDE EXCELLENT MEDICAL CARE! WE HOPE THAT WE HAVE MET YOUR EXPECTATIONS DURING YOUR EMERGENCY DEPARTMENT VISIT AND THAT YOU FEEL YOU HAVE RECEIVED EXCELLENT CARE! Prescriptions: Sulfamethoxazole/Trimethoprim [Bactrim Ds Tablet] 1 tab PO BID 14 Days #28 tablet Referrals: ELIA RAO MD [Primary Care Provider] - Follow up as needed
[2020-10-24] MEDS ORDERED: ONDANSETRON HCL INJ/PF 4 MG/2 ML SDV IV ONE (21:59)
[2020-10-25 02:46] VITALS: BP 125/82
== END 2020-10-25 00:18 | disposition home or self-care (01) ==
LOC: ER 18:22
DX: R10.9 Unspecified abdominal pain (principal); R51.9 Headache, unspecified; R50.9 Fever, unspecified; Z98.890 Other specified postprocedural states; Z20.828 Contact with and (suspected) exposure to other viral communicable diseases; L23.7 Allergic contact dermatitis due to plants, except food; Z87.891 Personal history of nicotine dependence
CPT/HCPCS: 99284; 96375; 96365; 96366; 36415; 87040; 87070; 87205; 85025; 87075; 87077; 80053; 81001; 87186; J3490; J2405; J3370

== ENCOUNTER 2020-11-04 12:52 | Emergency (ER) | payer MEDICAID | END 2020-11-04 13:44 | disposition left against medical advice (07) | LOC: ER 12:52 | DX: Z53.21 Procedure and treatment not carried out due to patient leaving prior to being seen by health care provider (principal) ==

== ENCOUNTER 2020-11-07 15:53 | Emergency (ER) | payer MEDICAID ==
[2020-11-07 16:06] VITALS: BP 127/67
--- NOTE | 2020-11-07 16:15 | ER Document Report ---
ED Medical Screen (RME) - General Stated Complaint: ABDOMINAL PAIN Primary Care Provider: ELIA RAO MD [Primary Care Provider] - Follow up as needed TRAVEL OUTSIDE OF THE [place] IN LAST 30 DAYS: No - HPI Notes: 11/07/20 16:09 Rapid Medical Exam HPI: this is a 34yo female c/o abdominal pain. says she had a ''tummy tuck'' on Sep 16. has been to the ER for infection complications. says her abdominal drain grew MRSA and was started on bactrim 1 months ago. 2 weeks later she had a fever and was started antibiotics again. She had accidently pulled out her abdominal drain 2 weeks ago. pt says she developed fever again this past week. Feels like she had fluid building up under her skin on the left side of her abdomen. Physical Exam: GENERAL: Well-appearing, well-nourished and in no acute distress. HEAD: Atraumatic, normocephalic. ENT: Moist mucous membranes. RESP: Respirations even and unlabored CV- Regular rate. NEURO: No focal neurological deficits. Moves all extremities spontaneously and on command. My involvement in this patients care was limited to a rapid initial assessment. A comprehensive ED assessment and evaluation of the patient, analysis of test results, treatment, and completion of the medical decision making process will be performed by other ER providers. - Related Data Allergies/Adverse Reactions: Penicillins Allergy (Verified 11/07/20 16:08) rash Past Medical History - Past Medical History Cardiac Medical History: Denies: Hx Coronary Artery Disease, Hx Heart Attack, Hx Hypertension Pulmonary Medical History: Reports: Hx Bronchitis Denies: Hx Asthma, Hx COPD, Hx Pneumonia Neurological Medical History: Denies: Hx Cerebrovascular Accident, Hx Seizures Renal/ Medical History: Denies: Hx Peritoneal Dialysis Musculoskeltal Medical History: Reports Hx Arthritis - RIGHT ANKLE, Reports Hx Musculoskeletal Trauma Psychiatric Medical History: Reports: Hx Anxiety, Hx Depression - dep and anxiety Traumatic Medical History: Reports: Hx Fractures Past Surgical History: Reports: Hx Abdominal Surgery - gastric sleeve, abdominoplasty, Hx Breast Surgery, Hx Orthopedic Surgery - right ankle x2, Hx Tonsillectomy - Immunizations Immunizations up to date: Yes Hx Diphtheria, Pertussis, Tetanus Vaccination: Yes Physical Exam - Vital signs Vitals: Temp Pulse Resp BP Pulse Ox 97.8 F 91 16 127/67 H 98 01/03/21 16:05 11/07/20 16:05 11/07/20 16:05 11/07/20 16:05 11/07/20 16:05 Course - Vital Signs Vital signs: Temp Pulse Resp BP Pulse Ox 97.8 F 91 16 127/67 H 98 11/07/20 16:05 11/07/20 16:05 11/07/20 16:05 11/07/20 16:05 11/07/20 16:05 Doctor's Discharge - Discharge Referrals: ELIA RAO MD [Primary Care Provider] - Follow up as needed
[2020-11-07 16:46] LABS: HEMATOCRIT 26.6 % (36.0-47.0); HEMOGLOBIN 8.7 g/dL (12.0-15.5); MEAN CORPUSCULAR HEMOGLOBIN 23.1 pg (27.0-33.4); MEAN CORPUSCULAR HGB CONC 32.8 g/dL (32.0-36.0); MEAN CORPUSCULAR VOLUME 71 fl (80-97); PLATELET COUNT 662 10^3/uL (150-450); RED BLOOD COUNT 3.77 10^6/uL (3.72-5.28); RED CELL DISTRIBUTION WIDTH 14.7 % (11.5-14.0); WHITE BLOOD COUNT 21.1 10^3/uL (4.0-10.5)
[2020-11-07 16:54] LABS: ALBUMIN 3.6 g/dL (3.5-5.0); ALKALINE PHOSPHATASE 130 U/L (38-126); ANION GAP 12 (5-19); ASPARTATE AMINO TRANSFERASE 32 U/L (14-36); BILIRUBIN,DIRECT 0.3 mg/dL (0.0-0.4); BILIRUBIN,TOTAL 0.3 mg/dL (0.2-1.3); BLOOD UREA NITROGEN 16 mg/dL (7-20); CALCIUM 8.8 mg/dL (8.4-10.2); CARBON DIOXIDE 24 mmol/L (22-30); CHLORIDE 102 mmol/L (98-107); GLUCOSE 106 mg/dL (75-110); POTASSIUM 4.7 mmol/L (3.6-5.0); TOTAL PROTEIN 8.2 g/dL (6.3-8.2)
[2020-11-07 16:57] LABS: APPEARANCE,URINE SLIGHTLY-CLOUDY; BILIRUBIN,URINE NEGATIVE (NEGATIVE); CALCIUM OXALATE CRYSTALS,URINE RARE /HPF; COLOR,URINE AMBER; GLUCOSE, URINE NEGATIVE (NEGATIVE); KETONES,URINE NEGATIVE (NEGATIVE); LEUKOCYTE ESTERASE,URINE NEGATIVE (NEGATIVE); NITRITE,URINE NEGATIVE (NEGATIVE); PROTEIN,URINE 30 mg/dL (NEGATIVE); URINE SPECIFIC GRAVITY 1.041
[2020-11-07 17:16] LABS: ABSOLUTE LYMPHOCYTES# (MANUAL) 1.7 10^3/uL (0.5-4.7); ABSOLUTE MONOCYTES # (MANUAL) 0.6 10^3/uL (0.1-1.4); BASOPHILS % (MANUAL) 0 % (0-2); EOSINOPHILS % (MANUAL) 0 % (0-6); LYMPHOCYTES % (MANUAL) 8 % (13-45); MONOCYTES % (MANUAL) 3 % (3-13); SEGMENTED NEUTROPHILS % (MAN) 89 % (42-78); TOTAL CELLS COUNTED 100
[2020-11-07 17:17] LABS: ANISOCYTOSIS SLIGHT; PLATELET COMMENT INCREASED
== END 2020-11-07 21:50 | disposition left against medical advice (07) ==
LOC: ER 15:53
DX: R10.9 Unspecified abdominal pain (principal); Z86.14 Personal history of Methicillin resistant Staphylococcus aureus infection; Z88.0 Allergy status to penicillin
CPT/HCPCS: 36415; 80053; 81001; 83690; 85025; 99281